=== PATIENT | male | born 1990 | race Caucasian/White ===

== ENCOUNTER 2016-11-27 15:06 | Emergency (ER) | payer OTHER ==
[2016-11-27 15:16] VITALS: BP 139/76
--- NOTE | 2016-11-27 16:08 | RAD ---
INDICATION: 2 days RIGHT side chest pain. COMPARISON: July 09, 2012 TECHNIQUE: Dual energy PA and routine lateral views of the chest were obtained. REPORT: Clear lungs and pleural spaces. Negative for pneumothorax. The heart, pulmonary vasculature, and mediastinal contours are unremarkable. Unremarkable osseous structures and soft tissue contours. IMPRESSION: No evidence for acute intrathoracic disease.
--- NOTE | 2016-11-27 16:21 | UC ---
Cardiac HPI - HPI Summary HPI Summary: 26 yo male with mild right upper chest pain x 2 days this has happened to him before but has never lasted this long no f/c no sob no n/v/d no abd pain not exertional not reproducible - History of Current Complaint Chief Complaint: UCChestPain Stated Complaint: CHEST PAIN Time Seen by Provider: 11/27/16 15:08 Hx Obtained From: Patient Onset/Duration: Gradual Onset, Lasting Days - 2 Timing: Constant Initial Severity: Mild Current Severity: Mild Pain Intensity: 3 Chest Pain Location: Discrete at: Character: Dull/Aching Aggravating: Nothing Alleviating: Nothing Associated Signs & Symptoms: Positive: Chest Pain. Negative: Vision Changes, Anxiety, Recent Stress, Headaches, Numbness, Tingling, Weakness, Dizziness, SOB , Swelling, Syncope, Fever, Diaphoresis, Nausea/Vomiting, Palpitations, Cough, Hemoptysis, Back Pain, Abdominal Pain - Allergy/Home Medications Allergies/Adverse Reactions: Allergies Allergy/AdvReac Type Severity Reaction Status Date / Time No Known Allergies Allergy Verified 03/28/15 17:20 Home Medications: Home Medications Ibuprofen TAB* [Advil TAB*] 2 tab PO PRN 11/27/16 [History] Lexapro 11/27/16 [History] Trazodone 11/27/16 [History] PMH/Surg Hx/FS Hx/Imm Hx Previously Healthy: Yes - Surgical History Surgical History: Yes Surgery Procedure, Year, and Place: SKIN GRAFTS ON HANDS age 14 months old - Family History Known Family History: Positive: Hypertension Negative: Cardiac Disease, Diabetes - Social History Alcohol Use: Occasionally Substance Use Type: None Smoking Status (MU): Heavy Every Day Tobacco Smoker Type: Cigarettes Amount Used/How Often: 1/2 ppd Length of Time of Smoking/Using Tobacco: 5-6 years Have You Smoked in the Last Year: Yes Review of Systems Constitutional: Negative Skin: Negative Eyes: Negative ENT: Negative Respiratory: Negative Cardiovascular: Chest Pain Gastrointestinal: Negative Genitourinary: Negative Motor: Negative Neurovascular: Negative Musculoskeletal: Negative Neurological: Negative Psychological: Negative All Other Systems Reviewed And Are Negative: Yes Physical Exam Triage Information Reviewed: Yes Appearance: Well-Appearing, No Pain Distress, Well-Nourished Vital Signs: Initial Vital Signs Temp 98.3 F 11/27/16 15:09 Pulse 80 07/11/17 15:09 Resp 16 11/27/16 15:09 BP 139/76 11/27/16 15:09 Pulse Ox 96 11/27/16 15:09 Vital Signs Reviewed: Yes Eyes: Positive: Conjunctiva Clear ENT: Positive: Hearing grossly normal. Negative: Nasal congestion, Nasal drainage, TMs normal, Tonsillar exudate, Trismus, Muffled/hoarse voice Neck: Positive: Supple, Nontender, No Lymphadenopathy Respiratory: Positive: Chest non-tender, Lungs clear, Normal breath sounds, No respiratory distress, No accessory muscle use Cardiovascular: Positive: RRR, No Murmur Abdomen Description: Positive: Nontender, No Organomegaly, Soft, Bruit. Negative: CVA Tenderness (R), CVA Tenderness (L) Bowel Sounds: Positive: Present Musculoskeletal: Positive: ROM Intact, No Edema Neurological Exam: Normal Neurological: Positive: Alert Psychological Exam: Normal Skin Exam: Normal Diagnostics - Radiology No standard instances Xray Interpretation: No Acute Changes Radiology Interpretation Completed By: Radiologist - EKG Cardiac Rate: NL Cardiac Rhythm: Sinus: Normal - inc RBBB Ectopy: None ST Segment: Normal - Clinical Impression Provider Diagnoses: chest pain of uncertain cause Discharge - Discharge Plan Condition: Stable Disposition: HOME Patient Education Materials: Noncardiac Chest Pain (ED) Referrals: David Veras MD [Primary Care Provider] - As Soon As Possible (try to get rechecked this week) Additional Instructions: advil or aleve if needed for pain Recheck for new or worsening symptoms Images Front/Back of Body, Lg ([place]): 1 - location of pain
== END 2016-11-27 16:37 | disposition home or self-care (01) ==
LOC: UCEAST 15:06
DX: R07.9 Chest pain, unspecified (principal); Z72.0 Tobacco use
CPT/HCPCS: 71020; 93005; 99211; G0463

== ENCOUNTER 2018-04-15 00:47 | Emergency (ER) | payer OTHER ==
[2018-04-15 00:53] VITALS: BP 125/78
--- NOTE | 2018-04-15 01:10 | ED ---
Lower Extremity - HPI Summary HPI Summary: Patient complains of left ankle pain and left knee pain after twisting it today. Denies any other pain, injury, symptoms. - History of Current Complaint Chief Complaint: EDExtremityLower Stated Complaint: LEFT ANKLE INJURY Time Seen by Provider: 04/15/18 00:53 Hx Obtained From: Patient Mechanism Of Injury: Twisted Onset of Pain: Immediate Onset/Duration: Hours Severity Initially: Moderate Severity Currently: Moderate Pain Intensity: 6 Pain Scale Used: 0-10 Numeric Timing: Constant Location: Is Discrete @ Character Of Pain: Aching, Throbbing Associated Signs And Symptoms: Positive: Swelling Aggravating Factor(s): Ambulation, Movement, Weight Bearing Alleviating Factor(s): Rest Able to Bear Weight: Yes - Allergies/Home Medications Allergies/Adverse Reactions: Allergies Allergy/AdvReac Type Severity Reaction Status Date / Time No Known Allergies Allergy Verified 04/15/18 00:50 PMH/Surg Hx/FS Hx/Imm Hx Endocrine/Hematology History: Denies: Hx Anticoagulant Therapy, Hx Diabetes, Hx Thyroid Disease Cardiovascular History: Denies: Hx Hypertension, Hx Pacemaker/ICD Respiratory History: Denies: Hx Asthma, Hx Chronic Obstructive Pulmonary Disease (COPD) GI History: Denies: Hx Ulcer Sensory History: Denies: Hx Hearing Aid Psychiatric History: Denies: Hx Panic Disorder - Surgical History Surgery Procedure, Year, and Place: SKIN GRAFTS ON HANDS age 14 months old - Immunization History Date of Tetanus Vaccine: unk Date of Influenza Vaccine: none Infectious Disease History: No Infectious Disease History: Denies: Hx Hepatitis, Hx Human Immunodeficiency Virus (HIV), History Other Infectious Disease, Traveled Outside the [place] in Last 30 Days - Family History Known Family History: Positive: Hypertension Negative: Cardiac Disease, Diabetes - Social History Alcohol Use: Occasionally Substance Use Type: Reports: None Hx Tobacco Use: Yes Smoking Status (MU): Heavy Every Day Tobacco Smoker Type: Cigarettes Amount Used/How Often: 1/2 ppd Length of Time of Smoking/Using Tobacco: 5-6 years Have You Smoked in the Last Year: Yes Review of Systems Constitutional: Negative Eyes: Negative ENT: Negative Cardiovascular: Negative Respiratory: Negative Gastrointestinal: Negative Genitourinary: Negative Positive: Arthralgia Skin: Negative Neurological: Negative Psychological: Normal All Other Systems Reviewed And Are Negative: Yes Physical Exam - Summary Physical Exam Summary: Positive swelling to left ankle. No erythema, ecchymosis, deformity, extra warmth noted. PMS intact distally. Normal exam of left knee. Triage Information Reviewed: Yes Vital Signs On Initial Exam: Initial Vitals Temp Pulse Resp BP Pulse Ox 98.4 F 80 16 125/78 100 04/15/18 00:49 04/15/18 00:49 04/15/18 00:49 04/15/18 00:49 04/15/18 00:49 Vital Signs Reviewed: Yes Appearance: Positive: Well-Appearing Skin: Positive: Warm Head/Face: Positive: Normal Head/Face Inspection Eyes: Positive: Normal Neck: Positive: Supple Respiratory/Lung Sounds: Positive: Clear to Auscultation Cardiovascular: Positive: Normal Abdomen Description: Positive: Nontender Musculoskeletal: Positive: Normal Neurological: Positive: Normal Psychiatric: Positive: Normal AVPU Assessment: Alert - Jeremi Coma Scale Best Eye Response: 4 - Spontaneous Best Motor Response: 6 - Obeys Commands Best Verbal Response: 5 - Oriented Coma Scale Total: 15 Diagnostics - Vital Signs Vital Signs Temp Pulse Resp BP Pulse Ox 04/15/18 00:49 98.4 F 80 16 125/78 100 - Laboratory Lab Statement: Any lab studies that have been ordered have been reviewed, and results considered in the medical decision making process. Lower Extremity Course/Dx - Course Course Of Treatment: Patient complains of left ankle pain and left knee pain after twisting it today. Denies any other pain, injury, symptoms. Physical exam:Positive swelling to left ankle. No erythema, ecchymosis, deformity, extra warmth noted. PMS intact distally. Normal exam of left knee. X-ray of knee and left ankle negative. Patient placed on crutches and ankle splint. Follow-up with no symptoms do not improve. Patient understands and approves of plan. - Diagnoses Provider Diagnoses: Fall, Ankle sprain Discharge - Sign-Out/Discharge Documenting (check all that apply): Patient Departure - Discharge Plan Condition: Stable Disposition: HOME Patient Education Materials: Ankle Sprain (ED), Ankle Stirrup Splint (ED) Forms: *Work Release Referrals: David Veras MD [Primary Care Provider] - Eden Larsen MD [Medical Doctor] - Additional Instructions: Ice, ibuprofen, rest, and elevation for ankle pain and swelling. If symptoms do not improve over the next couple days follow-up with Dr. GUARDADO orthopedics. Return to the ED for any new or worsening symptoms - Billing Disposition and Condition Condition: STABLE Disposition: Home
== END 2018-04-15 01:35 | disposition home or self-care (01) ==
LOC: ED 00:47
DX: S93.402A Sprain of unspecified ligament of left ankle, initial encounter (principal); W19.XXXA Unspecified fall, initial encounter; Y92.9 Unspecified place or not applicable; F17.210 Nicotine dependence, cigarettes, uncomplicated; R60.0 Localized edema
CPT/HCPCS: 99282